=== PATIENT | female | born 1955 | race Caucasian/White ===

== ENCOUNTER 2022-01-17 06:05 | Day surgery (SDC) | payer BC ==
[~2022-01-17] VITALS: Ht 172.7 cm; Wt 85.7 kg
[2022-01-17] MEDS ORDERED: ATORVASTATIN CA20 MG (06:52)
[2022-01-17] MEDS ORDERED: GLIMEPIRIDE4 MG (06:52)
[2022-01-17] MEDS ORDERED: LISI20 (06:53)
[2022-01-17] MEDS ORDERED: CLIMARA1 EACH (06:53)
[2022-01-17] MEDS ORDERED: Oxybutynin Chlo15 MG (06:53)
[2022-01-17] MEDS ORDERED: SPIRONOLACTONE25 MG (06:53)
--- NOTE | 2022-01-17 07:37 | NUR ---
01/17/22 0737 Jet Zhang 0.20MG EPI ADDED TO 20ML'S OF 2% LIDOCAINE TO ACHIEVE SOLUTION OF 1:100,000. 10 ML'S INJ INTO OPSITE AT 0727.
== END 2022-01-17 08:18 | disposition home or self-care (01) ==
LOC: ORSCSDS 06:05
PROVIDERS: Orthopaedic Surgery
PROC: 01N50ZZ Release Median Nerve, Open Approach (ICD-10-PCS; principal; 2022-01-17 07:30)
DX: G56.02 Carpal tunnel syndrome, left upper limb (principal); I10 Essential (primary) hypertension; E11.9 Type 2 diabetes mellitus without complications; F41.9 Anxiety disorder, unspecified; K21.9 Gastro-esophageal reflux disease without esophagitis; Z79.899 Other long term (current) drug therapy
CPT/HCPCS: 82947; J0171; J0690; J1100; J2250; J2405; J2704; J3010

== ENCOUNTER 2022-10-24 06:51 | Day surgery (SDC) | payer OTHER ==
[~2022-10-24] VITALS: Ht 172.7 cm; Wt 85.3 kg
[~2022-10-24 06:51] MED LIST: ATORVASTATIN CA20 MG PO; CLIMARA1 EACH PO; GLIMEPIRIDE4 MG PO; LISINOPRIL-HCT1 EAC1 PO; Oxybutynin Chlo15 MG PO; SPIRONOLACTONE25 MG PO; TOCO1000 PO; VITAMIN D310 MC4 PO
--- NOTE | 2022-10-24 07:51 | NUR ---
Ambulatory in Day Surgery History, Chart, Medications and Allergies reviewed before start of procedure. Lungs clear anteriorly to Auscultation. Pre-Op teaching done. Pt verbalizes understanding.
--- NOTE | 2022-10-24 18:53 | NUR ---
SHIFT SUMMARY PT S/P FOR R TOTAL KNEE. WORKED WITH PT AND TOLERATING PO INTAKE WELL. WILL POSSIBLY DC HOME TOMORROW.
[2022-10-25 04:44] LABS: BASOPHILS ABSOLUTE AUTO 0.02 K/mm3 (0.00-0.23); BASOPHILS PERCENT AUTO 0 % (0-2); EOSINOPHILS ABSOLUTE AUTO 0.02 K/mm3 (0.00-0.68); EOSINOPHILS PERCENT AUTO 0 % (0-6); Hematocrit 37.7 % (33.0-51.0); IMMATURE GRAN ABSOLUTE AUTO 0.07 K/mm3 (0.00-0.10); IMMATURE GRAN PERCENT AUTO 1 % (0-1); LYMPHOCYTES ABSOLUTE AUTO 1.32 K/mm3 (0.84-5.20); LYMPHOCYTES PERCENT AUTO 9 % (21-46); MONOCYTES ABSOLUTE AUTO 0.65 K/mm3 (0.16-1.47); MONOCYTES PERCENT AUTO 4 % (4-13); Mean Corpuscular HGB 30.3 pg (26.0-34.0); Mean Corpuscular HGB Conc 34.5 g/dL (31.5-36.5); Mean Corpuscular Volume 88 fL (80-100); Mean Platelet Volume 9.9 fL (9.1-12.4); NEUTROPHILS ABSOLUTE AUTO 12.85 K/mm3 (1.96-9.15); NEUTROPHILS PERCENT AUTO 86 % (41-73); Platelet Count 237 K/mm3 (150-400); RDW Coefficient Variation 11.9 % (11.7-14.2); RDW Standard Deviation 38.3 fL (35.1-46.3); Red Blood Cell Count 4.29 M/mm3 (3.80-5.20); White Blood Cell Count 14.93 K/mm3 (4.00-11.30)
[2022-10-25 05:05] LABS: Bun/Creatinine Ratio 28.4 (12.0-20.0); Calcium, Blood 8.2 mg/dL (8.5-10.1); Creatinine, Blood 0.92 mg/dL (0.40-1.00); Potassium, Blood 3.2 mmol/L (3.5-5.5)
--- NOTE | 2022-10-25 07:16 | NUR ---
SHIFT SUMMARY NO ACUTE CHANGES NOTED THROUGH THE NIGHT, VSS, RESP UNLABORED, PT IS TOLERATING PO INTAKE, VOIDING WNL, DRSG C/D/I, ICE PACK IN PLACE, PAIN MANAGED PER EMAR, PT IS UP AND DRESSED THIS AM. 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 PT IS RESTING QUIETLY AT THIS TIME, CALL LIGHT IN REACH.
[2022-10-25] MEDS ORDERED: ASPI81CH PO (09:13)
[2022-10-25] MEDS ORDERED: Percocet 5-3251 EACH PO (09:14)
[2022-10-25] MEDS ORDERED: TRAM50 PO (09:14)
--- NOTE | 2022-10-25 09:41 | NUR ---
DISCHARGE SUMMARY PT A&OX4, VSS/RA, RAMSES PO, VOIDING, AMB SBA FWW & GB, UP TO CHAIR, PAIN MANAGED, IV DC'D. DC INS PROVIDED. PT REP UNDERSTANDING THOSE INSTRUCTIONS INCLUDING FU APPT, PT OUTPT, DRESSING CHANGES, ASA, PAIN MANAGEMENT, SHORT FREQ AMB W/FWW. 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
== END 2022-10-25 09:47 | disposition home or self-care (01) ==
LOC: ORSCMMR 06:51 → ORD 08:15 → ORSCMMR 08:15 → SURS 11:07 → ORSCMMR 10-25 09:47
PROVIDERS: Orthopaedic Surgery
PROC: 0SR90JA Replacement of Right Hip Joint with Synthetic Substitute, Uncemented, Open Approach (ICD-10-PCS; principal; 2022-10-24 08:15)
PROC: 8E0Y0CZ Robotic Assisted Procedure of Lower Extremity, Open Approach (ICD-10-PCS; principal; 2022-10-24 08:15)
DX: M17.11 Unilateral primary osteoarthritis, right knee (principal); I10 Essential (primary) hypertension; E11.9 Type 2 diabetes mellitus without complications; Z79.84 Long term (current) use of oral hypoglycemic drugs; Z79.899 Other long term (current) drug therapy
CPT/HCPCS: 27447; 20985; S2900; 36415; 73560-RT; 80048; 82947; 85025; 97110; 97116; 97161; 97530; A9270; C1776; J0171; J0690; J0735; J1100; J1815; J1885; J2250; J2405; J2704; J2795; J3010; J7120

== ENCOUNTER 2023-03-21 09:09 | Day surgery (SDC) | payer OTHER ==
[~2023-03-21] VITALS: Ht 172.7 cm; Wt 84.9 kg
[~2023-03-21 09:09] MED LIST changes: +ASPI81CH PO; +Percocet 5-3251 EACH PO; +TRAM50 PO
[2023-03-21 10:01] VITALS: BP 138/84
[2023-03-21] MEDS ORDERED: OMEP20ER PO (10:03)
--- NOTE | 2023-03-21 11:10 | NUR ---
03/21/23 1110 Carrie Srivastava PT HAD COLONOSCOPY IN 2008 AT [id number], NO POLYPS. PT HAD COLONOSCOPY IN 2019 IN [place] AND FOUND NO POLYPS. PT SCHEDULED HERE TODAY FOR COLONOSCOPY BUT IT IS NOT TIME. RECORDS FAXED FROM [place] TODAY SHOWED NO POLYPS FOUND, NEXT COLONSCOPY IN 10 YEARS. PROCEDURE CANCELLED BY MD ROLLINS IN PREOP INSURANCE WILL NOT PAY FOR IT. PT HAPPY AND LAUGHING ABOUT IT AND NOT UPSET AT ALL. 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
== END 2023-03-21 10:30 | disposition home or self-care (01) ==
LOC: ORSCSDS 09:09
DX: Z12.11 Encounter for screening for malignant neoplasm of colon (principal); Z53.9 Procedure and treatment not carried out, unspecified reason
CPT/HCPCS: 82947; J2704; J7120

== ENCOUNTER → 2024-08-07 | Outpatient (CLI) | payer OTHER ==
[~2024-08-07] MED LIST changes: +OMEP20ER PO
[2024-08-08 15:57] LABS: Bacterial Vaginosis PCR Negative (NEGATIVE); Candida glabrata-krusei, PCR NOT DETECTED (NOT DETECT)
[2024-08-08 15:59] LABS: Candida Group, PCR DETECTED (NOT DETECT)
== END ==
LOC: LAB 18:23 → LAB SHORT 18:23
PROVIDERS: Physician Assistant
DX: B37.31 Acute candidiasis of vulva and vagina (principal)
CPT/HCPCS: 87481; 87661; 87801

== ENCOUNTER → 2025-02-19 | Outpatient (CLI) | payer OTHER ==
[2025-02-19 20:29] LABS: Bacterial Vaginosis PCR Negative (NEGATIVE); Candida glabrata-krusei, PCR NOT DETECTED (NOT DETECT)
[2025-02-19 20:48] LABS: Candida Group, PCR DETECTED (NOT DETECT)
== END | disposition home or self-care (01) ==
LOC: LAB SHORT 18:30 → LAB 18:30
PROVIDERS: Physician Assistant
DX: B37.31 Acute candidiasis of vulva and vagina (principal)
CPT/HCPCS: 81515